=== PATIENT | male | born 1970 | race Caucasian/White ===

== ENCOUNTER 2024-02-03 12:58 | Day surgery (SDC) | payer OTHER, SELFPAY ==
[2024-02-03] VITALS (9 sets, daily range): BP systolic 142–187; BP diastolic 74–108; PULSE 73–96; RESP 16–18; TEMP 36.4–36.6; O2SAT 92–100
--- NOTE | 2024-02-03 15:33 | ED.GENADULT ---
HPI - General Adult General Chief complaint: Abdominal Pain Stated complaint: sent for appendicitis Time Seen by Provider: 02/03/24 15:17 History of Present Illness HPI narrative: 53-year-old male presenting to the emergency department for evaluation after having an outpatient CT scan that showed acute appendicitis. Patient initially began having some diffuse/umbilical abdominal pain on Tuesday but thought it was nonspecific. Patient states over the course of the week his symptoms worsened. Patient did have follow-up with his primary care physician today and had an outpatient CT scan done through [facility] that did show acute appendicitis. They do not have a local surgeon on-call so he was advised to go to a hospital that did have a surgeon and patient preferred to come to [place]. At time of evaluation patient declined any medications for nausea or for pain control. Patient does have history B-cell lymphoma for which she completed treatment but never had follow-up for. Patient was also supposed to be taking Eliquis but states he has not had a dose of Eliquis for approximately 2 weeks. Patient denies any prior history of MD and denies any abdominal surgical history Related Data Allergies Allergy/AdvReac Type Severity Reaction Status Date / Time No Known Allergies Allergy Verified 02/03/24 16:58 Review of Systems Review of Systems: All systems reviewed & are unremarkable except as noted in HPI and below Exam Narrative: APPEARANCE: Well appearing, no pain, no distress, well-nourished. HEAD: normocephalic, atraumatic. EYES: PERRLA/EOMI, conjunctivae clear. NOSE: Normal no drainage EARS:TMS clear with good light reflex. THROAT: Pharynx clear, no exudate. NECK: Supple. No adenopathy, no masses. RESPIRATORY: Airway patent, respirations nonlabored. Clear to auscultation bilaterally, no rales, rhonchi, wheezing. CARDIOVASCULAR: Regular rate and rhythm without murmurs rubs or gallops. ABDOMINAL: Right lower quadrant tenderness to palpation, normal bowel sounds MUSCULOSKELETAL: Moves all extremities. Strength/ROM intact, No edema, No calf tenderness. NEURO: Alert. Cranial nerves II through XII intact. SKIN: Warm, dry. Normal Color Course Vital Signs Vital signs: Vital Signs Temperature 97.6 F 02/03/24 13:20 Pulse Rate 96 02/03/24 13:20 Respiratory Rate 18 02/03/24 13:20 Blood Pressure 150/88 H 02/03/24 13:20 Pulse Oximetry 96 02/03/24 13:20 Oxygen Delivery Room Air 02/03/24 13:20 Temperature 98 F 02/03/24 18:46 Pulse Rate 80 02/03/24 20:14 Respiratory Rate 16 02/03/24 19:38 Blood Pressure 158/84 H 02/03/24 20:14 Pulse Oximetry 95 02/03/24 19:38 Oxygen Delivery Room Air 02/03/24 19:38 Oxygen Flow Rate 3 02/03/24 19:23 Medical Decision Making MDM Narrative Medical decision making narrative: 53-year-old male present to the emergency department for evaluation for an outpatient CT scan that showed acute appendicitis. Patient declined any medications for pain control. Patient was treated with IV fluids and a dose of Zosyn. I did discuss the case with Dr. Martinez and he states he does not necessarily need the CT scan repeated and would be comfortable with obtaining the CT read from [facility]. Basic labs including CBC CMP were ordered and patient was ordered Zosyn. Patient went to the OR with Dr. Martinez Differential Diagnosis Differential Diagnosis: Acute appendicitis Medical Records Medical records narrative: Outside medical records were sought from [facility] and did show acute appendicitis Vital Signs Vital Signs: Vital Signs Temperature 97.6 F 02/03/24 13:20 Pulse Rate 96 02/03/24 13:20 Respiratory Rate 18 02/03/24 13:20 Blood Pressure 150/88 H 02/03/24 13:20 Pulse Oximetry 96 02/03/24 13:20 Oxygen Delivery Room Air 02/03/24 13:20 Temperature 98 F 02/03/24 18:46 Pulse Rate 80 02/03/24 20:14 Respiratory Rate 16 02/03/24 19:38 Blood Pressure 158/84 H 02/03/24 20:14 Pulse Oximetry 95 02/03/24 19:38 Oxygen Delivery Room Air 02/03/24 19:38 Oxygen Flow Rate 3 02/03/24 19:23 Imaging Data Radiologist's impression: Read from outside hospital CT abdomen pelvis with contrast Impression: Appendix measures 8.4 mm. Indices stranding changes are present. Findings are consistent with appendicitis. No loculated collections are present. No evidence of pneumoperitoneum. Diffuse colonic diverticulosis Discharge Plan Discharge Clinical Impression: Acute appendicitis Qualifiers: Acute appendicitis type: with localized peritonitis Appendicitis gangrene presence: without gangrene Appendicitis perforation presence: without perforation Appendicitis abscess presence: without abscess Qualified Code(s): K35.30 - Acute appendicitis with localized peritonitis, without perforation or gangrene Patient Disposition: Home, Self-Care Condition: Improved
--- NOTE | 2024-02-03 16:14 | P.SS_ITS ---
Same Day Admit/Disch: [facility] History of Present Illness Chief complaint: Acute appendicitis Narrative: Ye Andrews is a 53 year old male who has been having some mild, indistinct, mid abdominal pain for about 6 days. Last night and this morning this pain moved to the right lower quadrant and became more severe. He has felt feverish but did not take his temperature. He has had no nausea, vomiting, or diarrhea. He saw his primary care physician this morning who noticed him to be tender in the right lower quadrant. He sent him for a CT scan at [place] [facility] and this CT scan reportedly showed acute appendicitis. They have no surgeon in [facility] at this time and patient lives in [place], so he preferred to come here to [place] for treatment. He denies abdominal pain except that it hurts in the right lower quadrant whenever he moves. He has had no previous abdominal surgery. Patient significantly does have a history of B-cell lymphoma. This has been treated by Dr. Gomez at the [facility]. Patient's last treatment was in July. He reports that he was to be seen for a follow-up visit but did not show up. He had a Port-A-Cath but it was only in for a couple of weeks as he developed venous thrombosis associated with it. He is supposed to be taking Eliquis for the upper extremity DVT but has not taken any for a couple of weeks. He has not been working with his cancer treatment and is in the process of applying for disability. Aside from his abdominal complaints, he has noticed that his right knee hurts when he starts to walk but gets better as he walks more. This has been going on about a week. He has had no lower extremity swelling. His CT scan report is in the process of being acquired from [facility]. We also have no lab work and this is being drawn in the emergency room. Same Day Admit/Disch: Med Pre-admit Medications Home Medications ?Medication ?Instructions ?Recorded ?Confirmed ?Type ibuprofen 600 mg tablet 600 mg PO Q6H PRN pain #14 tabs 02/03/24 Rx oxycodone-acetaminophen 5 mg-325 1 - 2 tablet PO Q6H PRN pain #10 02/03/24 Rx mg tablet (Percocet) tabs Review of Systems Review of Systems All systems reviewed & are unremarkable except as noted in HPI and below (As noted in the HPI) Exam Const: General: comfortable, no acute distress, alert and awake HENMT: Head: normocephalic and atraumatic Mouth: Yes Normal oral and palatal mucosa present Eyes: Conjunctivae: conjunctivae normal Pupils: Equal, round and reactive pupils present EOM: EOMs intact bilaterally Neck: Neck: normal visual inspection, no lymphadenopathy and nontender Resp: Effort & Inspection: normal respiratory effort Auscultation: clear to auscultation bilaterally Cardio: Rate: regular rate Rhythm: regular rhythm Heart sounds: no gallops, no murmurs and no rubs GI: Inspection: no abdominal wall ecchymosis, non-distended, obesity, no scars, visible herniation (Umbilical) and other (Diastasis linea alba) GI Palp: Yes Soft to palpation, Yes Tenderness to palpation present (GI) (Exquisitely tender right lower quadrant with guarding), Yes Guarding due to palpation present (GI), No Hepatosplenomegaly present, No Hepatomegaly present, No Splenomegaly present, Yes Hernia present umbilical < 3 cm (Reducible), No Palpable mass present and No Ascites present Skin: General skin exam: normal color Lesions: no lesions Rashes: no rashes Neuro: General: no focal motor deficits and CN's II-XI intact bilaterally Cranial nerves: Yes Equal, round and reactive pupils present, Yes Bilaterally intact EOM present, Yes facial symmetry and Yes Midline tongue present Speech: normal speech Motor exam (neuro): 5/5 motor strength present throughout and Motor abnormalities not present Extrem: General: no clubbing, cyanosis or edema and edema Psych: Affect: normal affect Thought process: Normal thought process present Insight: Good insight present (Psych) DS: Data Additional Comments Additional comments: CT scan report came to the emergency room from [facility]. Dr. Hidalgo read the report to me and it suggests an 8 mm appendix with periappendiceal stranding but no evidence of abscess or ruptured appendix. DS: Summary Time Spent with Patient Time attestation: Total time spent providing and/or coordinating discharge services: DS: Admitting Diagnosis Discharge Date 02/03/24 Admitting Diagnosis * Acute appendicitis-await CT scan report and the labs being drawn in the emergency room but clinically his history and exam findings are certainly consistent with the reported CT scan results. We will wait for the labs and CT scan report but I did go ahead and explained that there are medical and surgical treatments for appendicitis. Medical treatments have shortcomings in that the appendix is not removed. Occasionally appendiceal cancer is the cause of the patient's symptoms. There is also a significant risk of recurrent appendicitis as well. I have recommended laparoscopic appendectomy. I described the procedure to the patient and his . The length of the surgery and the usual recovery have been discussed. All questions were answered, he agrees to go ahead. * History B-cell lymphoma-patient finished treatment for this last summer but has not followed up. * History DVT associated with Port-A-Cath placement-patient prescribed Eliquis but has not taken this for couple of weeks DS: Discharge Diagnosis Discharge Diagnosis (1) Acute appendicitis: Qualifiers: Acute appendicitis type: with localized peritonitis Appendicitis gangrene presence: without gangrene Appendicitis perforation presence: without perforation Appendicitis abscess presence: without abscess Qualified Code(s): K35.30 - Acute appendicitis with localized peritonitis, without perforation or gangrene Code(s): K35.80 - Unspecified acute appendicitis Status: Acute Assessment and Plan: UNEVENTFUL LAPAROSCOPIC APPENDECTOMY PERFORMED 02/03/[address] MARTINEZ (2) History of B-cell lymphoma: Code(s): Z85.72 - Personal history of non-Hodgkin lymphomas Status: Chronic Assessment and Plan: Finished chemotherapy last July. Needs to follow-up with Dr. Gomez (3) DVT of axillary vein, chronic: Qualifiers: Laterality: unspecified laterality Qualified Code(s): I82.A29 - Chronic embolism and thrombosis of unspecified axillary vein Code(s): I82.A29 - Chronic embolism and thrombosis of unspecified axillary vein Status: Chronic Assessment and Plan: Associated with Port-A-Cath which has been removed. Patient was prescribed Eliquis but has not been taking it for a couple of weeks. Discharge Plan Discharge Patient Disposition: Home, Self-Care Discharge Instructions: 1. May shower the day after surgery over incisions. 2. Call office for: -Wound increasingly painful or bleeding -Vomiting -Fever of greater than 101 degrees 3. Expect some blood on dressing and old blood on skin. 4. If no bowel movement for three days, take 1 oz. (30 ml) Milk of Magnesia, if no results, take Fleets enema. 5. No heavy lifting > 15-20 pounds for 2 weeks. 6. No driving for 3 days or while taking narcotic pain medications. 7. Up walking 10-30 minutes three times per day. Stairs are okay, just take them slowly. 8. Resume previous home medications. 9. Follow-up 10-14 days in office for wound check or as previously scheduled. 10. Oral pain medications prescription to be sent home with patient. 11. NUTRITION: Start out by drinking fluids and increase your diet as tolerated. If you experience nausea, try dry toast, crackers, and 7-UP. If nausea or vomiting persists, contact your surgeon?s office. Patient Instructions: Antibiotic Form Patient Language: Lao Stand Alone Forms: General Discharge Information Follow-up/Referrals: Antonio Martinez MD [Physician] - 2 Weeks (Call for appointment) PHYSICIAN NOT ON STAFF,NONSTAFF [Primary Care Provider] - Discharge Medications: New oxycodone-acetaminophen [Percocet] 5-325 mg tablet 1 - 2 tablet PO Q6H PRN (Reason: pain) Qty: 10 0RF ibuprofen 600 mg tablet 600 mg PO Q6H PRN (Reason: pain) Qty: 14 0RF
--- NOTE | 2024-02-03 17:20 | P.PNAN_ITS ---
Anes - Initial Pre Proc Eval Procedure: Operation Date: 02/03/24 17:15 Proposed Procedures p Laparoscopic Appendectomy - Antonio Martinez MD Date/Time: 02/03/24 17:20 Surgeon: Antonio Martinez MD Pre Op Diagnosis: Acute appendicitis Patient Data Age: 53 Gender: M Height: 1.83 m Weight: 118.8 kg Last Vital Signs Temp 36.6 C 02/03/24 16:55 Pulse 79 02/03/24 17:06 Resp 16 02/03/24 17:06 BP 187/101 H 02/03/24 17:06 Pulse Ox 95 02/03/24 17:06 O2 Del Method Room Air 02/03/24 16:55 Allergies Allergy/AdvReac Type Severity Reaction Status Date / Time No Known Allergies Allergy Verified 02/03/24 16:58 Patient hx anesthesia problems: none Family hx anesthesia problems: none Results Review: All pre-operative results and documents have been reviewed as part of the pre- operative evaluation. Anes - Eval Final PreProcedure Day of Procedure 02/03/24 17:20 Patient weight: obese Heart: regular rate and rhythm Lungs: clear to auscultation Airway: Mallampati scale class II Neurological: alert and oriented Last oral intake: >/= 8 hours ASA classification: III Emergent: yes Anesthetic plan: proceed Anesthesia type and monitoring: general ETT and standard monitoring Results Review: All pre-operative results and documents have been reviewed as part of the pre- operative evaluation. Informed Consent: The patient's anesthetic plan and its attendant risks and benefits were discussed with the patient/family/POA. Questions were solicited and answers provided to the satisfaction of the patient/family/POA.
--- NOTE | 2024-02-03 17:23 | WPDHPUPDATE1 ---
History and Physical Update Update Date/Time: 02/03/24 17:23 History and Physical has been reviewed, including an updated exam of the patient. There are NO changes in the patient's condition. Risks, benefits, and alternatives have been discussed and questions answered. Patient agrees to proceed with procedure.
[2024-02-03] MEDS: BUPIVACAINE/EPINEPHRINE 0.5% 50 ML VIAL 30 ML INFILTRATE (17:24)
[2024-02-03] MEDS: PIPERACILLN/TAZ 3.375GM/NS50ML 3.375 GM/50 ML BAG IVPB (17:54)
[2024-02-03] MEDS: LACTATED RINGERS 1,000 ML 30 ML IV CONT ×2 (18:30→18:46)
--- NOTE | 2024-02-03 18:42 | P.OP_ITS ---
Procedure Note - Detailed Date of Procedure 02/03/24 Pre-op Diagnosis Acute appendicitis Post-op Diagnosis Same Procedure Performed Laparoscopic appendectomy Surgeon Antonio Martinez MD Parenting Skills Instructor Dave MACIAS Anesthesia General and Local Indications Patient had about 5 days of generalized nondescript abdominal pain that last night moved to the right lower quadrant. His primary care physician saw him and noticed tenderness in the right lower quadrant. CT scan in [place] showed a cute appendicitis. Patient was examined in the emergency room and [facility] and felt to have acute appendicitis. He is taken to surgery now for laparoscopic appendectomy. Findings Patient had acute appendicitis. The midportion of the appendix was retroperitoneal and was bound by overlying adhesions. There was no evidence of gangrene or perforation. Description of Procedure Patient was taken to the operating room and induced into general anesthesia. The abdomen was prepped and draped. Initial 3 trocars were placed in the usual fashion starting in left upper quadrant and then proceeding down the left side under direct visualization. A left lower abdominal 10 11 trocar was placed. Patient was placed in Trendelenburg with the right-side elevated. Patient has a protuberant abdomen and the appendix was bound down by the adhesions mentioned above. We placed a 4th trocar in the right upper quadrant and placed the camera there for better visualization. With two retractor ports and a dissecting port, we were slowly able to dissect the distal appendix which had a lot of fatty mesentery associated with it. The cecum was elevated and the adhesions binding down the proximal and midportion of the appendix were exposed. These were carefully taken down and the appendix was able to be mobilized. There were extensive adhesions binding the appendix in a retroperitoneal position in its midportion. These were difficult to see but were slowly exposed and divided until the appendix was mobilized fully. We then dissected in the mesoappendix and thoroughly cauterized and divided the appendiceal artery. We dissected more the mesoappendix and then skeletonized the appendix at its base. A Vicryl endoloop was then used to ligate the appendix at its base. We then amputated the appendix just above the ligature and cauterized the mucosa of the appendiceal stump. Once the appendix was freed, it was immediately placed in an Endo-Catch bag and retrieved through the 10 11 left lower quadrant trocar site. We replaced the trocar and then exposed the areas of dissection on the right si de of the abdomen. We irrigated and suctioned this area 2 or 3 different times. There was no evidence of bleeding or bowel injury. All looked good. We then evacuated CO2 and removed the trocar sleeves. Skin wounds were closed with subcuticular 4-0 Monocryl skin suture. The wounds were dressed with Exofin surgical adhesive. The patient was awakened and taken to recovery in good condition. Sponge and needle counts were correct x2. Estimated Blood Loss -15 Drains No Packing No Pathology Yes (Appendix) Complications None Condition Stable Disposition PACU [facility] Billing Surgery - Charge Forward: Surgery Billing (Laparoscopic appendectomy)
[2024-02-03] MEDS: fentaNYL CITRATE INJ (*CRX) 100 MCG/2 ML VIAL 25 MCG IV PUSH (19:18)
[2024-02-03] MEDS: KETOROLAC 30 MG/ML VIAL (*BKC) IV PUSH (19:18)
[2024-02-03] MEDS: oxyCODONE HCL (*CRX) 5 MG TAB IR PO (20:08)
== END 2024-02-03 20:35 | disposition home or self-care (01) ==
LOC: ANHED 16:53 → ANHSURGERY 16:58
PROVIDERS: Emergency Provider Emergency Medicine; Visit Provider Surgery
PROC: 0DTJ4ZZ Resection of Appendix, Percutaneous Endoscopic Approach (ICD-10-PCS; CPT 44970; principal; 2024-02-03 17:15)
DX: K35.30 Acute appendicitis with localized peritonitis, without perforation or gangrene (principal); G89.18 Other acute postprocedural pain; E66.9 Obesity, unspecified; Z68.35 Body mass index [BMI] 35.0-35.9, adult; Z79.1 Long term (current) use of non-steroidal anti-inflammatories (NSAID); Z79.891 Long term (current) use of opiate analgesic; Z85.72 Personal history of non-Hodgkin lymphomas; Z86.718 Personal history of other venous thrombosis and embolism
CPT/HCPCS: 44970; 88304; 96365; 96375; 99285; A9270; J0330; J1100; J1171; J1885; J2003; J2250; J2405; J2543; J2704; J3010; J7030; J7120

== ENCOUNTER 2024-02-22 11:39 | Outpatient (CLI) | payer OTHER, SELFPAY ==
--- NOTE | ~2024-02-22 | XR_ITS ---
XR knee RT 3V Ordering provider: Don Araya, History: . NKI, Pain/Burning X 1 month, HX of NONH LYMPHOMA TYP B . Comparison: None. FINDINGS: BONES: No acute fracture or dislocation. Exostosis seen in the distal femur and proximal tibia. JOINT SPACES: Normal. SOFT TISSUES: Normal. IMPRESSION: No acute osseous abnormality right knee. Exostosis in the distal femur and proximal tibia. Reviewed, dictated and finalized at location A. MACOEPIDEMIOLOGIST
== END 2024-02-22 11:40 | disposition home or self-care (01) ==
LOC: CHSIMG 11:42
PROVIDERS: PCP Family Medicine; Visit Provider Family Medicine
DX: M25.561 Pain in right knee (principal); M89.9 Disorder of bone, unspecified
CPT/HCPCS: 73562

== ENCOUNTER 2024-07-12 10:22 | Outpatient (CLI) | payer OTHER, SELFPAY ==
--- NOTE | ~2024-07-12 | PE_ITS ---
EXAMINATION: PET skull to mid thigh DATE: 07/12/2024 12:37 INDICATION: Diffuse large B-cell lymphoma TECHNIQUE: Blood glucose level was 139 mg/dL. 10.81 mCi of 18-fluorodeoxyglucose (18-FDG) was adminis tered i.v. Low dose computed tomography (CT) images were acquired from the base of the brain to the p roximal thighs for attenuation correction and anatomic localization. Positron emission tomography (PE T) images were acquired in the same distribution beginning 54 minutes after injection. Images includi ng fused PET/CT images were reconstructed in axial, coronal, and sagittal planes. Automated exposure control technique was employed. The dose-length product was 1301.36mGy-cm. COMPARISON: None FINDINGS: Head/neck: There is symmetric increased activity in the oral cavity, nares and ocular muscles without CT correla te, likely physiologic. No pathologically enlarged cervical lymphadenopathy or suspicious foci of inc reased FDG uptake in the visualized head or neck. Chest: There are multiple small bilateral calcified pulmonary nodules and lateral calcified hilar lymph node s consistent with old granulomatous disease. No suspicious noncalcified or FDG avid pulmonary nodules or pleural effusion. Mild cardiomegaly with atherosclerotic coronary artery calcification. No perica rdial effusion. Thoracic aorta is normal in caliber. No pathologically enlarged thoracic lymphadenopa thy. Abdomen/pelvis/proximal thighs: Physiologic renal accumulation and excretion of FDG activity in the kidneys, bladder and along portio ns of ureters. Photopenic defect associated with a 2.7 cm low-attenuation cyst in the left kidney. No rmal degree and heterogenous pattern of increased uptake throughout the liver without radiologic radha elate or dominant FDG avid lesion. The gallbladder, pancreas, spleen and bilateral adrenal glands are normal. Mild uptake scattered throughout the bowels without radiologic correlate, also likely physio logic. No other abnormal foci of increased FDG uptake or pathologically enlarged lymphadenopathy in t he abdomen, pelvis or proximal thighs. Musculoskeletal: Relatively symmetric and likely physiologic increased activity in the musculature of the bilateral lundberg nds and forearms. Additional small region of increased muscular activity without radiologic correlate in the left gluteus medius medius muscle belly which could be physiologic although the focality also suggests potentially inflammatory etiology such as muscle strain or site of intramuscular injection. Again seen are pagetoid changes throughout the left innominate bone and in the periacetabular right innominate bone. No suspicious lytic, blastic or FDG avid bone lesions. IMPRESSION: 1. No FDG avid lesions or pathologically enlarged lymphadenopathy to suggest recurrent lymphoma. Reviewed, dictated and finalized at location A. IMPRESSION: 1. No FDG avid lesions or pathologically enlarged lymphadenopathy to suggest re current lymphoma.
[2024-07-12 11:07] LABS: Glucose Point of Care 139 mg/dl (65-105)
--- OUTSIDE RECORDS SUMMARY | 2024-07-12 11:29 | XMS_ITS | Encounter Summary ---
Author Organization [facility] Address [address] [place] [address] Care Team Providers Care Shoder Filler Name Role Phone Unavailable Primary Care Provider Unavailabl e Encounter Details Date Type Department Care Team (Late st Contact Info) Description 07/15/2022 Lab Requisition [facility] - Pathology Lab [address] [place] [id number] lAton Sandoval MD [address] [id number] Illness, unspecified Social History Tobacco Use Types Packs/Day Years Used Date Smoking Tobacco: Never Assessed Sex and Gender Information Value Date Recorded Sex Assigned at Not on file Legal Sex Male 2:48 PM CDT Gender Identity Not on file Sexual Orientation Not on file documented as of this encounter Plan of Treatment Not on file documented as of this encounter Procedures Procedure Name Priority Date/Time Associated Diagnosis Comments PATHOLOGY TISSUE Routine 07/14/2022 10:4 0 AM CDT Illness, unspecified documented in this encounter Results * PATHOLOGY TISSUE (07/14/2022 10:40 AM CDT) Case Report Surgical Pathology Report Case: [id number] Authorizing Provider: Alton Sandoval MD Collected: 07/14/2022 10:40 AM Ordering Location: [facility] Care Pathology Lab Received: 07/15/2022 03:00 PM Pathologist: Lesly Wilson MD Specimen: Lymph Node Biopsy, right neck lymph node biopsy 07/16/2022 11:18 AM CDT [facility] Final Diagnosis Lymph node, right neck, needle core biopsy: - B-cell lymphoma - See description 07/16/2022 11:18 AM [facility] PATHOLOGY LAB at 1118 CDT Microscopic Description and Comment Sections show thin cores of soft tissue that are infiltrated by a population of lymphocytes. No normal alexei structures are noted, and the sampled tissue appears to have a diffuse infiltrate of cells. The cells vary in morphology and are predominantly intermediate in size. Nuclear contour irregularities are frequently noted. Occasional mitotic activity and apoptosis is seen. No areas of necrosis are sampled. Immunohistochemistry is performed with appropriately reactive controls on block A2 to further define the infiltrating cells and view the immunoarchitecture. The cells are positive for CD20, BCL-6, MUM-1, and BCL-2. CD21 does not show any definitive follicular dendritic cell meshworks, but it appears to weakly stain the majority of the tumor cells. The tumor cells lack expression of CD5, CD10, cyclin D1, and CD30. While c-MYC is attempted, limited tissue present on the slide precludes definitive interpretation. CD3 and CD5 show scattered admixed T-cells. In summary, the sampled tissue shows a B-cell lymphoma of non-germinal center origin. The primary differential diagnostic considerations at this time include a high-grade B-cell lymphoma (e.g., double or triple hit lymphoma) or a diffuse large B-cell lymphoma of non-germinal center origin. FISH for MYC, BCL-2, and BCL-6 is recommended at a minimum to resolve this. Limited tissue remains in block A2, and block A1 contains an overall smaller quantity of tissue. This may require additional sampling to perform these studies for further classification. If more tissue is obtained, consider excisional biopsy for a more complete assessment of the cytomorphology and architecture. Clinical correlation is advised. 07/16/2022 11:18 AM [facility] PATHOLOGY LAB Clinical History 52 year old man with an enlarged right submandibular lymph node that is reported to be necrotic on imaging. 07/16/2022 11:18 AM [facility] PATHOLOGY LAB Materials Received Received are 6 slides and 2 blocks (A1; A2) labeled [id number] along with a copy of the outside pathology report. [place] [address]. All original materials are returned to the referring institution, along with a copy of our final report. 07/16/2022 11:18 AM T [facility] PATHOLOGY LAB Pathologist Location at [facility] 07/16/2022 11:18 AM CDT [facility] PATHOLOG[facility] LAB Disclaimer The performance characteristics of all immunohistochemical and indirect immunofluorescence stains (if any) cited in this report were determined by the Histopathology Laboratory of [facility]. Some of these tests were developed by our own laboratory and have not been cleared or approved by the US Food and Drug Administration. The FDA does not require this test to go through premarket FDA review. These tests are used for clinical purposes. They should not be regarded as investigational or for research. This laboratory is certified under the Clinical Laboratory Improvement Amendments (CLIA) as qualified to perform high complexity clinical laboratory testing. This case has been personally reviewed and interpreted by the attending (teaching) pathologist. 07/16/2022 11:18 AM CDT [facility] PATH[facility] Embedded Images 07/16/2022 11:18 AM T [facility] PATH[facility] LAB Pathology/Cytolo gy BIOPSY OF LYMPH NODE / Unknown 07/14/2022 10:40 AM CDT 07/15/2022 3:00 PM CDT us Alton Sandoval MD LAB - PATHOLOGY/CYTOLOGY ORDERAB LES Final Result [facility] PATHOLOGY LAB [address] [place], [place] [id number] [place] [address] documented in this encounter Visit Diagnoses Diagnosis Illness, unspecified documented in this encounter
--- OUTSIDE RECORDS SUMMARY | 2024-07-12 11:29 | XMS_ITS | Clinical Summary ---
Author Organization [facility] Address [address] [place] [address] Care Team Providers Care Tactical Debriefer Name Role Phone Unavailable Primary Care Provider Unavailabl e Source Comments [facility],non-owned Affiliates and Associated Physician Practices is amultiple site organization consisting of ambulatory clinics and hospital sitesin [place], [place], [place] and [place]. This disclosure is being madepursuant to the Care Everywhere program and may not contain all information available regarding this patient. Last updated 17.[facility] [employer] Social History Tobacco Use Types Packs/Day Years Used Date Smoking Tobacco: Never Assessed Sex and Gender Information Value Date Recorded Sex Assigned at Not on file Legal Sex Male 2:48 PM CDT Gender Identity Not on file Sexual Orientation Not on file Plan of Treatment Health Maintenance Due Date Last Done Comments COLOGUARD (AGES 45-75) - COL ON CA SCREENING 1970 COLON MONITORING 1969 COLONOSCOPY - COLON CA SCREENING 1969 CT COLONOGRAPHY - COLON CA SCREENING 1969 Colorectal Cancer Screening 1970 FIT - COLON CA SCREENING 1969 FLEX SIG - COLON CA SCREENING 1969 LIPID TESTING 1969 HIV SCREENING 1984 HEPATITIS C SCREENING 03/08/1987 DTAP/TDAP/TD VACCINES (1 - Tdap) 1988 HEPATITIS B VACCINE (1 of 3 - 19+ 3-dose series) 1988 PNEUMOCOCCAL VACCINE 50+ (1 of 1 - PCV) 2019 ZOSTER VACCINE (1 of 2) 2019 COVID-19 VACCINE (1 - 2023-2 5 season) 2023 DEPRESSION SCREENING 02/08/2024 INFLUENZA VACCINE (Season Ended) 2024 HIB VACCINE Aged Out No longer eligi ble based on patient's age to complete this topic HPV VACCINE Aged Out No longer eligi ble based on patient's age to complete this topic MENINGOCOCCAL (Group B) VACC INE SHARED DECISION-MAKING Aged Out No longer eligibl e based on patient's age to complete this topic MENINGOCOCCAL GROUPS A/C/Y/W VACCINE Aged Out No longer eligible b ased on patient's age to complete this topic Insurance [employer] SELF PAY NO INSURANCE Member Subscriber Plan / Payer (Ef fective for All Dates) Name:Chris Dillard Member ID:Not on file Relation to Subscriber:Not on file Name:CHRIS DILLARD Subscriber ID:Not on file (Home) Address: [address] [place] [id number] Payer ID:Not on file Group ID:Not on file Type:Self Pay Address: [facility] Address: [facility] [id number] [place] [phone]
--- OUTSIDE RECORDS SUMMARY | 2024-07-12 11:29 | XMS_ITS | Clinical Summary ---
Author Organization [facility] Marianela Tobar Address [address] [place] [address] Care Team Providers Care T[employer] Center Supervisor Name Role Phone Don Araya MD Primary Care Provider Allergies No known active allergies Medications glipiZIDE (GLUCOTROL XL) 10 mg Extended Release 24 hour tablet Take 10 mg by mouth daily in the morning. 06/25/19 23 Active lovastatin (MEVACOR) 40 mg tablet Take 80 mg by mouth daily. 06/29/19 23 Active Tradjenta 5 mg Tablet Take 5 mg by mouth daily. 07/12/19 23 Active Lantus Solostar U-100 Insulin 100 unit/mL (3 mL) solution for injection 55 mL. 07/22/19 23 Active ondansetron (ZOFRAN ODT) 8 mg Tablet, Rapid DissolveIndicat ions:B-cell lymphoma of lymph nodes of neck, unspecified B-cell lymphoma type (CMS/HCC) Dissolve 1 tablet on top of tongue then swallow with saliva every 8 hours as needed for nausea or vomiting 30 Tablet 3 08/04/19 23 Active lisinopriL (PRINIVIL) 40 mg tablet Take 40 mg by mouth daily. 11/11/19 23 Active apixaban (ELIQUIS) 5 mg tabletIndicatio ns:Swelling of right upper extremity Take 1 Tablet (5 mg) by mouth 2 times daily. 60 Tablet 3 12/29/19 23 Active predniSONE (DELTASONE) 50 mg tabletIndicatio ns:B-cell lymphoma of lymph nodes of neck, unspecified B-cell lymphoma type (CMS/HCC) Take 2 Tablets (100 mg) by mouth see administration instructions. 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 (CMS/HCC); Swelling of right upper extremity from Last 3 Months Family History Medical History Relation Name Comments Diabetes Father Heart Disease Father Diabetes Mother Heart Disease Mother Relation Name Status Comments Brother Daughter 1 Alive Daughter 2 Alive Daughter 3 Alive Father Mother Alive Son 1 Alive Son 2 Alive Son 3 Alive Son 4 Alive Social History Tobacco Use Types Packs/Day Years Used Date Smoking Tobacco: Never Smokeless Tobacco: Never Alcohol Use Standard Drinks/Week Comments Yes 0 (1 standard drink = 0.6 oz pur e alcohol) occasional Sex and Gender Information Value Date Recorded Sex Assigned at Not on file Legal Sex Male 11:43 PM CDT Gender Identity Not on file Sexual Orientation Not on file Last Filed Vital Signs Vital Sign Reading Time Taken Comments Blood Pressure 156/87 03/01/2023 9:04 AM SENIOR FINANCIAL REPORTING ANALYST Pulse 80 03/01/2023 8:59 AM SENIOR FINANCIAL REPORTING ANALYST Temperature 35.9 C (96.7 F) 03/01/2023 8:59 AM SENIOR FINANCIAL REPORTING ANALYST Respiratory Rate 12 03/01/2023 8:59 AM SENIOR FINANCIAL REPORTING ANALYST Oxygen Saturation 94% 03/01/2023 8:59 AM SENIOR FINANCIAL REPORTING ANALYST Inhaled Oxygen Concentration - - Weight 120.7 kg (266 lb) 03/01/2023 8:59 AM SENIOR FINANCIAL REPORTING ANALYST Height 182.9 cm (6') 07/22/2022 3:30 PM CDT Body Mass Index 36.08 07/22/2022 3:30 PM CDT Plan of Treatment Health Maintenance Due Date Last Done Comments DTAP/TDAP/TD VACCINES (1 - Tdap) 1988 HEPATITIS B VACCINES (1 of 3 - 19+ 3-dose series) 04/1988 COLORECTAL SCREENING 2014 Colorectal Cancer Screening 2014 FIT-DNA Q 3 years 2014 FIT/FOBT Q 1 year 2014 Flex Sig/CT Colonography Q 5 years 2014 ZOSTER VACCINE (1 of 2) 2019 INFLUENZA VACCINE (#1) 2023 Insurance Care Teams Tire Center Supervisor Relationship Specialty Start Date End Date Don Araya MD [address] [place] [id number] PCP - General Family Practice 09/09/22
--- OUTSIDE RECORDS SUMMARY | 2024-07-12 11:29 | XMS_ITS | Encounter Summary ---
Author Organization [facility] Address [address] [place] [address] Care Team Providers Care Coater Operator Name Role Phone Unavailable Primary Care Provider Unavailabl e Encounter Details Date Type Department Care Team (Late st Contact Info) Description 07/15/[address] [facility] - Pathology Lab [address] [place] [address] Alton Sandoval MD [address] [place] [phone] Illness, unspecified Social History Tobacco Use Types Packs/Day Years Used Date Smoking Tobacco: Never Assessed Sex and Gender Information Value Date Recorded Sex Assigned at Not on file Legal Sex Male 2:48 PM CDT Gender Identity Not on file Sexual Orientation Not on file documented as of this encounter Plan of Treatment Not on file documented as of this encounter Visit Diagnoses Diagnosis Illness, unspecified documented in this encounter
== END 2024-07-12 10:23 | disposition home or self-care (01) ==
PROVIDERS: PCP Family Medicine; Visit Provider Internal Medicine Hematology & Oncology
DX: C83.31 Diffuse large B-cell lymphoma, lymph nodes of head, face, and neck (principal)
CPT/HCPCS: 78815; A9552

== ENCOUNTER 2025-01-07 06:49 | Outpatient (CLI) | payer OTHER, SELFPAY ==
--- NOTE | ~2025-01-07 | CT_ITS ---
EXAMINATION: CT chest abdomen pelvis w con DATE: 01/07/2025 07:19 INDICATION: B-cell lymphoma. TECHNIQUE: Computed tomography (CT) of the chest, abdomen, and pelvis was performed with 100 mL Omnipaque 350 intravenous contrast. Automated exposure control and iterative reconstruction technique were employed. The dose-length product was 1137.08 mGy-cm. COMPARISON: PET/CT 07/12/2024 FINDINGS: CHEST CT: Calcified pulmonary nodules and calcified hilar lymph nodes are consistent with old granulomatous disease. No pleural effusion. The heart size is normal. There are coronary artery calcifications. No pericardial effusion. ABDOMEN/PELVIS CT: The liver is normal. There is a 5.6 x 2.0 cm hypodense mass with capsular retraction in the spleen. There is an ill-defined 2.1 cm hypodense mass in the spleen. The spleen is normal in size. The gallbladder, pancreas, adrenal glands, and right kidney are normal. There is a 3.3 cm cyst in left kidney. The prostate is mildly enlarged. There is a right inguinal hernia containing fat. There are no dilated loops of bowel. The appendix is not visualized. There are no pathologically enlarged lymph nodes. There is no free intraperitoneal fluid. 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 There is mild lumbar spondylosis. There is a stable lytic lesion in L5 vertebral body without increased activity on the prior PET, likely benign. IMPRESSION: 1. Splenic masses, which may be infarcts or treated lymphoma. Reviewed, dictated and finalized at location E. [employer]
[2025-01-07 07:13] LABS: Estimated Glomerular Filt Rate > 60
== END 2025-01-07 06:50 | disposition home or self-care (01) ==
PROVIDERS: PCP Physician Assistant; Visit Provider Internal Medicine Hematology & Oncology
DX: C85.11 Unspecified B-cell lymphoma, lymph nodes of head, face, and neck (principal)
CPT/HCPCS: 71260; 74177; Q9967

== ENCOUNTER 2025-01-14 16:14 | Outpatient (CLI) | payer OTHER, SELFPAY ==
--- NOTE | ~2025-01-14 | US_ITS ---
EXAMINATION: US venous doppler UE RT, 01/14/2025 16:00 LAUNDERER HAND HISTORY: DVT Comparison: None Technique: Multiple valerio scale and color Doppler sonographic images were obtained of the internal jugular, subclavian, axillary, brachial, basilar, radial and ulnar veins. Findings: Venous System:Normal flow, augmentation and compressibility. No echogenic thrombus identified. Soft tissues: Soft tissues are unremarkable. Impression: Negative for DVT. Reviewed, dictated and finalized at location P. DERER HAND Impression: Negative for DVT.
--- OUTSIDE RECORDS SUMMARY | 2025-01-14 14:15 | XMS_ITS | Encounter Summary ---
Author Organization [facility] Address [address] [place] [address] Care Team Providers Care Nurse Transplant Name Role Phone Don Araya MD Primary Care Provider [phone] Reason for Referral * Radiology Services (Urgent) - Closed Specialty Diagnoses / Procedures Referred By Kami madison Referred To Contact Diagnoses Acute deep vein thrombosis (DVT) of axillary vein of right upper extremity (CMS/HCC) Procedures US DOPPLER VENOUS ARM RIGHT US DOPPLER VENOUS ARM RIGHT Arthur Gomez MD [address] [place] [phone] Phone: tel: fax: [place] [phone] Referral ID Status Reason Start Date Expiration Date V isits Requested Visits Authorized [id number] Closed [facility] CTS 01/14/2025 02/14/2026 1 1 SCHOOL HVAC R INSTRUCTOR * CT Scan (Routine) - Closed Specialty Diagnoses / Procedures Referred By Kami madison Referred To Contact Diagnoses B-cell lymphoma of lymph nodes of neck, unspecified B-cell lymphoma type (CMS/HCC) Procedures CT CHEST ABDOMEN PELVIS W CONT Arthur Gomez MD [address] [place] [phone] Phone: tel: fax: [place] [phone] Referral ID Status Reason Start Date Expiration Date V isits Requested Visits Authorized [id number] Closed [facility] CTS 01/14/2025 02/14/2026 1 1 SCHOOL HVAC R INSTRUCTOR Reason for Visit * Reason Comments Follow Up Encounter Details Date Type Department Care Team (Late st Contact Info) Description 01/14/2025 2:15 PM HIGH SCHOOL HVAC R INSTRUCTOR Office Visit [facility] Oncology and Hematology [facility] [address] [facility] [address] [place] [address] Arthur Gomez MD [address] [facility] [address] [place] [address] Arm DVT (deep venous thromboembolism), acute, left (CMS/HCC) (Primary Dx); B-cell lymphoma of lymph nodes of neck, unspecified B-cell lymphoma type (CMS/HCC); Acute deep vein thrombosis (DVT) of axillary vein of right upper extremity (CMS/HCC) Social History Tobacco Use Types Packs/Day Years Used Date Smoking Tobacco: Never Smokeless Tobacco: Never Tobacco Cessation:Counseling Given: Not Answered Alcohol Use Standard Drinks/Week Comments Yes 0 (1 standard drink = 0.6 oz pur e alcohol) occasional Sex and Gender Information Value Date Recorded Sex Assigned at Not on file Legal Sex Male 11:43 PM CDT Gender Identity Not on file Sexual Orientation Not on file documented as of this encounter Last Filed Vital Signs Vital Sign Reading Time Taken Comments Blood Pressure 165/78 01/14/2025 2:17 PM HIGH SCHOOL HVAC R INSTRUCTOR Pulse 84 01/14/2025 2:17 PM HIGH SCHOOL HVAC R INSTRUCTOR Temperature 36.8 C (98.3 F) 01/14/2025 2:13 PM HIGH SCHOOL HVAC R INSTRUCTOR Respiratory Rate 16 01/14/2025 2:13 PM HIGH SCHOOL HVAC R INSTRUCTOR Oxygen Saturation 96% 01/14/2025 2:17 PM HIGH SCHOOL HVAC R INSTRUCTOR Inhaled Oxygen Concentration - - Weight 109.3 kg (241 lb) 01/14/2025 2:13 PM HIGH SCHOOL HVAC R INSTRUCTOR Height - - Body Mass Index 32.69 07/22/2022 3:30 PM CDT documented in this encounter Progress Notes * Arthur Gomez MD - 01/14/2025 2:33 PM CST HEMATOLOGY / ONCOLOGY PROGRESS NOTE Patient Identification: Name: Ye Andrews Age: 54 y.o. Sex: male : 1970 DIAGNOSIS Diffuse large B cell lymphoma non-germinal center type status post ultrasound- guided biopsy of the right neck lymph node on July 14, 2022. FISH testing for double and triple hit lymphoma came back negative. CURRENT TREATMENT Surveillance TREATMENT HISTORY R-CHOP started August 19, 2022. Completed cycle 6/ on February 02, 2023. SUBJECTIVE Patient came to the office for follow-up visit. He denies any night sweats fevers and chills. He has intermittent left sided rib cage pain. Denies any other new complaints. Review of system Constitutional: Patient did not mention fevers, sweats, weight and appetite stable, denies any tiredness and fatigue HEENT: Patient did not mention sinus congestion, hearing or vision problems Respiratory: Patient did not mention cough, dyspnea, wheeze Cardiovascular: Patient did not mention chest pain, exertional chest pressure/discomfort, nausea, syncope, shortness of breath GI: Patient did not mention constipation, diarrhea, dsyphagia, reflux symptoms, vomiting, melena : Patient did not mention dysuria, frequency, incontinence, urgency Integumentary system: no lymphadenopathy, sweats, flushing Musculoskeletal: Patient not mention: myalgia, arthralgia, denies any further swelling. Neurological: Patient did not mention blurry or disturbed vision, numbness/weakness, dizziness Skin: No lumps, bumps or rashes. 12 point review of system was reviewed Objective: Vital signs in last 24 hours: As per nursing note Exam: General appearance: alert, cooperative, no distress, appears stated age Head: normocephalic, without obvious abnormality, atraumatic Eyes: conjunctivae/corneas clear, EOM's intact Ears: normal external ear canals AU Nose: Nares normal. Septum midline. Mucosa normal. No drainage or sinus tenderness Throat: Lips, mucosa, and tongue normal. Teeth and gums normal Neck: supple, symmetrical, trachea midline. Lungs: clear to auscultation bilaterally Heart: regular rate and rhythm, S1, S2 normal, no murmur, click, rub or gallop Abdomen: soft, non-tender. Bowel sounds normal. No masses, No organomegaly Extremities: extremities normal, atraumatic, right upper extremity edema Skin: Skin color, texture, turgor normal. No rashes or lesions Lymph nodes: No evidence of lymphadenopathy Neuro: No obvious focal deficit Exam as above PATH LABS Labs from August 18 showed WBC 9.0 hemoglobin 15.6 platelet 244,000 Labs from September 09 showed WBC 5.7 hemoglobin 15.5 platelet 334,000 creatinine 0.6 Labs from September 30 showed WBC 5.2 hemoglobin 16.2 platelet 301,000 creatinine 0.6 Labs from October 21 showed WBC 7.5 hemoglobin 15 platelet 287,000 creatinine 0.8 Labs from December 17 showed WBC 8.1 hemoglobin 15.7 platelet 297,000 Labs from January 25 showed WBC 2.7 hemoglobin 15.8 platelet 280,000 ANC 1200 creatinine 0.7 Labs from July 31 showed WBC 10.5 hemoglobin 15.2 platelet 350,000 Labs from January 14 showed WBC 7.1 hemoglobin 15.1 platelet 268,000 creatinine 0.9 Assessment: Plan: There are no active problems to display for this patient. 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 FISH testing for double and triple hit lymphoma came back negative. Flow cytometry of the peripheral blood for lymphoma came back negative. CT soft tissue neck done on July 02 that showed 8 x 3.6 x 5 cm mass in the submental region extending to the right submandibular region. PET scan done on August 31 showed enlarged FDG avid lymphadenopathy in the right face and neck with additional involvement of the normal-sized left internal jugular chain lymph node with borderline increased FDG activity. No evidence of distant metastasis. Patient is started chemotherapy with R-CHOP regimen on August 19, 2022. Patient received cycle 4 of chemotherapy on October 21 but further chemotherapy was discontinued due to insurance changes. Patient resumed chemotherapy with cycle 5 on January 12, 2023. Patient completed cycle 6 of chemotherapy on February 02, 2023. CT scan chest abdomen pelvis done on January 07, 2025 showed splenic masses may reflect splenic infarction or treated lymphoma with no evidence of lymphadenopathy. Labs stable. There is no evidence of relapse of disease on my examination. I will see him back in 9months with repeat CT chest abdomen and pelvis. History of right internal jugular and axillary vein DVT status post port removal. He is clinically asymptomatic. He is on Eliquis. We will order Doppler studies now and based on the results we will decide about continuation of Eliquis versus starting aspirin. History of TIA. Patient had brain MRI done on October 24, 2024 showed chronic small vessel ischemic changes. My plan will be to start him on aspirin. He will also follow-up with a neurologist. Phone visit in 1 week and follow-up with CT scan in 9 months. 01/14/2025 Arthur Gomez MD SCHOOL HVAC R INSTRUCTOR documented in this encounter Plan of Treatment Upcoming Encounters Date Type Department Care Team (Late st Contact Info) Description 10/21/2025 10:15 AM CDT Office Visit [facility] Oncology and Hematology - [place] [address] [facility] [address] [place] [address] Arthur Gomez MD [address] [facility] [address] [place] [address] Scheduled Orders Name Type Priority Associated Diagnoses Orde r Schedule CBC WITH DIFFERENTIAL Lab Stat B-cell lymphoma of lymph nodes of neck, unspecified B-cell lymphoma type (CMS/HCC) Expected: 10/15/2025, Expires: 01/13/2026 COMPREHENSIVE METABOLIC PANEL Lab Stat B-cell lymphoma of lymph nodes of neck, unspecified B-cell lymphoma type (CMS/HCC) Expected: 10/15/2025, Expires: 01/13/2026 LACTATE DEHYDROGENASE Lab Routine B-cell lymphoma of lymph nodes of neck, unspecified B-cell lymphoma type (CMS/HCC) Expected: 10/15/2025, Expires: 01/13/2026 CT CHEST ABDOMEN PELVIS W CONT Imaging Routine B-cell lymphoma of lymph nodes of neck, unspecified B-cell lymphoma type (CMS/HCC) Expected: 10/15/2025, Expires: 01/13/2026 US DOPPLER VENOUS ARM RIGHT Imaging Stat Acute deep vein thrombosis (DVT) of axillary vein of right upper extremity (CMS/HCC) Expected: 01/14/2025, Expires: 01/14/2026 documented as of this encounter Visit Diagnoses Diagnosis Arm DVT (deep venous thromboembolism), acute, left (CMS/HCC)- Primary B-cell lymphoma of lymph nodes of neck, unspecified B-cell lymphoma type (CMS/HCC) Acute deep vein thrombosis (DVT) of axillary vein of right upper extremity (CMS/HCC) documented in this encounter Care Teams Nurse Transplant Relationship Specialty Start Date End Date Don Araya MD [address] [place] [phone] PCP - General Family Practice 09/09/22 documented as of this encounter
--- OUTSIDE RECORDS SUMMARY | 2025-01-14 19:26 | XMS_ITS | Encounter Summary ---
Author Organization [facility] Address [facility] [place] [address] Care Team Providers Care Psychologist Clinical Name Role Phone Don Araya MD Primary Care Provider Reason for Referral * Imaging (Routine) - New Request Specialty Diagnoses / Procedures Referred By Contac t Referred To Contact RADIOLOGY Diagnoses Atypical chest pain Procedures NM PHARM NUC STRESS TEST 1 DAY W TRACING Joshua Cruz PA [address] [place] [phone] Phone: tel: fax: Referral ID Status Reason Start Date Expiration Date V isits Requested Visits Authorized [id number] New Request 01/14/2025 01/14/2026 1 1 MODELER * Procedure (Routine) - New Request Specialty Diagnoses / Procedures Referred By Kami madison Referred To Contact Diagnoses Atypical chest pain Procedures CARDIOLOGY STRESS TEST ONLY, EXERCISE Joshua Cruz PA [address] [place] [phone] Phone: tel: fax: Referral ID Status Reason Start Date Expiration Date V isits Requested Visits Authorized [id number] New Request 01/14/2025 01/14/2026 1 1 MODELER Encounter Details Date Type Department Care Team (Late st Contact Info) Description 01/14/2025 Transcribe Orders [facility] Pre Access Team [address] [place] [address] Joshua Cruz PA [address] [place] [phone] Social History Tobacco Use Types Packs/Day Years Used Date Smoking Tobacco: Never Smokeless Tobacco: Never Alcohol Use Standard Drinks/Week Comments Yes 0 (1 standard drink = 0.6 oz pur e alcohol) Weekends Sex and Gender Information Value Date Recorded Sex Assigned at Male 03/08/2024 9:07 AM CLAY MODELER Legal Sex Male 5:59 PM CLAY MODELER Gender Identity Not on file Sexual Orientation Not on file documented as of this encounter Plan of Treatment Scheduled Orders Name Type Priority Associated Diagnoses Order Schedule CARDIOLOGY STRESS TEST ONLY, EXERCISE Cardiac Services Routine Atypical chest pain 1 Occurrences starting 01/14/2025 until 01/14/2026 NM PHARM NUC STRESS TEST 1 DAY W TRACING NUC MED Routine Atypical chest pain Expected: 01/14/2025, Expires: 01/14/2026 documented as of this encounter Visit Diagnoses Diagnosis Atypical chest pain- Primary Other chest pain documented in this encounter Care Teams Psychologist Clinical Relationship Specialty Start Date End Date Don Araya MD [address] [place] [phone] PCP - General FAMILY PRACTICE 08/21/18 documented as of this encounter
--- OUTSIDE RECORDS SUMMARY | 2025-01-14 19:26 | XMS_ITS | Clinical Summary ---
Author Organization [facility] Marianela Tobar Address [address] [place] [address] Care Team Providers Care Bridge Game Director Name Role Phone Don Araya MD Primary [...] Active lisinopriL (PRINIVIL) 40 mg tablet Take 20 mg by mouth daily. 11/11/19 23 Active [...] see administration instructions. 10 Tablet 5 01/26/20 23 Active Active Problems No known active problems Encounters Date Type Department Care Team Description 01/14/2025 2:15 PM PLANT PRODUCTION WORKER Office Visit [facility] Oncology and Hematology 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, unspecified B-cell lymphoma type (CMS/HCC); Acute deep vein thrombosis (DVT) of axillary vein of right upper extremity (CMS/HCC) 01/08/2025 Orders Only [facility] Oncology and Hematology - Mert [address] [place] [phone] Arthur Gomez MD 12/11/2024 External Device Data STL ABSTRACTION Provider, Abstract 12/05/2024 External Device Data STL ABSTRACTION Provider, Abstract 12/05/2024 External Device Data STL ABSTRACTION Provider, Abstract from Last 3 Months Family History Medical [...] Comments Blood Pressure 165/78 01/14/2025 2:17 PM PLANT PRODUCTION WORKER Pulse 84 01/14/2025 2:17 PM PLANT PRODUCTION WORKER Temperature 36.8 C (98.3 F) 01/14/2025 2:13 PM PLANT PRODUCTION WORKER Respiratory Rate 16 01/14/2025 2:13 PM PLANT PRODUCTION WORKER Oxygen Saturation 96% 01/14/2025 2:17 PM PLANT PRODUCTION WORKER Inhaled Oxygen Concentration - - Weight 109.3 kg (241 lb) 01/14/2025 2:13 PM PLANT PRODUCTION WORKER Height 182.9 cm (6') 07/22/2022 3:30 PM CDT Body Mass Index 32.69 07/22/2022 3:30 PM CDT Plan of Treatment Upcoming Encounters Date Type Department Care Team (Late st Contact Info) Description 10/21/2025 10:15 AM CDT Office Visit [facility] Oncology and Hematology - [place] [address] [facility] [address] [place] [address] Arthur Gomez MD [address] [facility] [address] [place] [address] Health Maintenance Due Date Last Done Comments Pre-Diabetes and Diabetes Screening 1969 DTAP/TDAP/TD VACCINES (1 - Tdap) 1988 HEPATITIS B VACCINES (1 of 3 - 19+ 3-dose series) 04/1988 COLORECTAL SCREENING 2014 Colorectal Cancer Screening 2014 FIT-DNA Q 3 years 2014 FIT/FOBT Q 1 year 2014 Flex Sig/CT Colonography Q 5 years 2014 ZOSTER VACCINE (1 of 2) 2019 Preventative Visit- Commercial 02/08/2024 INFLUENZA VACCINE (#1) 2024 Procedures Procedure Name Priority Date/Time Associated Diagnosis Comments CT CHEST ABDOMEN PELVIS W CONT Routine 01/07/2025 9:00 AM PLANT PRODUCTION WORKER from Last 3 Months Results * CT CHEST ABDOMEN PELVIS W CONT (01/07/2025 9:00 AM PLANT PRODUCTION WORKER) Anatomical Region Laterality Modality Chest Computed Tomogra phy Arthur Gomez MD CT ORDERABLES Final Result from Last 3 Months Insurance [employer] [id number] Care Teams Bridge Game Director Relationship Specialty Start Date End Date Don Araya MD [address] [place] [phone] PCP - General Family Practice 09/09/22
--- OUTSIDE RECORDS SUMMARY | 2025-01-14 19:26 | XMS_ITS | Clinical Summary ---
Author Organization [facility] Address [address] [place] [address] Care Team Providers Care Mine Shifter Name Role Phone Unavailable Primary Care Provider Unavailabl e Source Comments [facility],non-owned Affiliates and Associated Physician Practices is amultiple site organization consisting of ambulatory clinics and hospital sitesin [place], [place], [place] and [place]. This disclosure is being madepursuant to the Care Everywhere program and may not contain all information available regarding this patient. Last updated 17.[facility] [employer]er Mode Social History Tobacco Use Types Packs/Day Years [...] 2019 ZOSTER VACCINE (1 of 2) 2019 DEPRESSION SCREENING 02/08/2024 COVID-19 VACCINE (1 - 2024-2 6 season) 2024 INFLUENZA VACCINE (#1) 2024 HIB VACCINE Aged Out No longer [...] DILLARD Subscriber ID:Not on file (Home) Address: [address] [place] [id number] Payer ID:Not on file Group ID:Not on file Type:Self Pay Address: [facility]
--- OUTSIDE RECORDS SUMMARY | 2025-01-14 19:26 | XMS_ITS | Encounter Summary ---
Author Organization [facility] Address [address] [facility] [place] [address] Care Team Providers Care Textile Slitting Machine Operator Name Role Phone Unavailable Primary Care Provider Unavailabl e Encounter Details Date Type Department Care Team (Late st Contact Info) Description 07/15/2022 Lab Requisition [facility] - Pathology Lab [address] [place] [phone] Alton Sandoval MD [address] [place] [phone] Illness, unspecified Social History Tobacco Use [...]
--- OUTSIDE RECORDS SUMMARY | 2025-01-14 19:26 | XMS_ITS | Clinical Summary ---
Author Organization [facility] Address [address] [place] [address] Care Team Providers Care Director Of Clinical Trials Name Role Phone Don Araya MD Primary Care Provider Allergies No known active allergies Medications amLODIPine (NORVASC) 10 MG tablet Take 1 tablet (10 mg total) by mouth daily. 02/18/2024 Active ELIQUIS 5 MG tablet Take 1 tablet (5 mg total) by mouth 2 (two) times daily. 02/17/2024 Active atorvastatin (LIPITOR) 20 MG tablet Take 1 tablet (20 mg total) by mouth daily. 02/17/2024 Active glipiZIDE XL 10 MG 24 hr tablet Take 1 tablet (10 mg total) by mouth 2 (two) times daily. 02/17/2024 Active HYDROcodone-marry taminophen (NORCO) 5-325 MG tablet TAKE 1 TABLET TWICE A DAY NEEDED FOR PAIN 02/28/2024 Active LANTUS SOLOSTAR 100 UNIT/ML injection (PEN) INJECT 65 UNITS UNDER THE SKIN AT BEDTIME, 15 UNITS IN MORNING. MAX DOSE IS 100 UNITS 02/22/2024 Active lisinopril (PRINIVIL) 40 MG tablet Take 1 tablet (40 mg total) by mouth daily. Active lovastatin (MEVACOR) 40 MG tablet Take 2 tablets (80 mg total) by mouth daily. Active meloxicam (MOBIC) 15 MG tablet Take 1 tablet (15 mg total) by mouth daily. 02/15/2024 Active metFORMIN (GLUCOPHAGE) 1000 MG tablet Take 1 tablet (1,000 mg total) by mouth 2 (two) times daily. Active RYBELSUS 14 MG tablet Take 1 tablet (14 mg total) by mouth daily. 12/19/2023 Active sildenafil (VIAGRA) 100 MG tablet 1 TABLET BY MOUTH NEEDED 08/22/2023 Active Active Problems Problem Noted Date Diagnosed Date S/P total knee replacement, right 09/21/2024 Knee pain, right 09/16/2024 Osteochondral defect of condyle of femur 025 Acute medial meniscus tear of right knee, initia l encounter 04/02/2024 Exostosis of right femur 03/08/2024 Acute lateral meniscus tear of right knee, initial encounter 03/08/2024 Effusion of knee joint right 03/08/2024 Encounters Date Type Department Care Team Description 01/14/2025 Transcribe Orders [facility] Pre Access Team [address] [place] [address] Joshua Barbosa PA 12/04/2024 8:36 AM CDT - 12/04/2024 11:59 PM CDT Hospital Encounter [facility] [address] [facility] [address] Joshua Barbosa PA Discharge Disposition: Home or Self Care (Routine Discharge) 12/04/2024 Travel 11/21/2024 Travel 11/15/2024 Travel 11/06/2024 9:05 AM CDT - 11/06/2024 11:59 PM CDT Hospital Encounter [facility] [address] [place] [phone] Ramiro Michael, PT Ace Power Jr., Marleni Gibson, WHARFMASTER Jnt Pain/Knee Discharge Disposition: Home or Self Care (Routine Discharge) 11/06/2024 Travel 11/02/2024 9:07 AM CDT - 11/02/2024 11:59 PM CDT Hospital Encounter [facility] [address] [place] [phone] Ramiro Michael, PT Ace Power Jr., DO Total Knee Arth Discharge Disposition: Home or Self Care (Routine Discharge) 11/02/2024 Travel 10/26/2024 8:54 AM CDT - 10/26/2024 11:59 PM CDT Hospital Encounter [facility] [address] [place] [phone] Ace Power Jr., Marleni Gibson, WHARFMASTER Total Knee Arth Discharge Disposition: Home or Self Care (Routine Discharge) 10/26/2024 Travel 10/24/2024 1:20 PM CDT - 10/24/2024 11:59 PM CDT Hospital Encounter [facility] [address] [facility] [address] Joshua Barbosa, PA Discharge Disposition: Home or Self Care (Routine Discharge) 10/24/2024 11:37 AM CDT - 10/24/2024 1:19 PM CDT Hospital Encounter [facility] [address] [place] [phone] Ramiro Michael, PT Ace Power Jr., DO Total Knee Arth Discharge Disposition: Home or Self Care (Routine Discharge) 10/24/2024 Travel 10/19/2024 8:38 AM CDT - 10/19/2024 11:59 PM CDT [facility] [address] [place] [phone] Ramiro Michael, Ace Velazquez Jr., DO Total Knee Arth Discharge Disposition: Home or Self Care (Routine Discharge) 10/19/2024 Travel 10/17/2024 9:16 AM CDT - 10/17/2024 11:59 PM CDT Hospital Encounter [facility] [address] [place] [phone] Ramiro Michael, PT Ace Power Jr., Marleni Gibson, WHARFMASTER Total Knee Arth Discharge Disposition: Home or Self Care (Routine Discharge) 10/17/2024 Travel 10/15/2024 10:45 AM CDT - 10/15/2024 11:59 PM CDT Hospital Encounter [facility] [address] [place] [phone] Ace Power Jr., Marleni Gibson, WHARFMASTER Total Knee Arth Discharge Disposition: Home or Self Care (Routine Discharge) 10/15/2024 Travel from Last 3 Months Family History Medical History Relation Comments Diabetes Father Relation Status Comments Father Mother Alive Social History Tobacco Use Types Packs/Day Years Used Date Smoking Tobacco: Never Smokeless Tobacco: Never Tobacco Cessation:Counseling Given: Not Answered Alcohol Use Standard Drinks/Week Comments Yes 0 (1 standard drink = 0.6 oz pur e alcohol) Weekends Sex and Gender Information Value Date Recorded Sex Assigned at Male 03/08/2024 9:07 AM WOOD BUCKER Legal Sex Male 5:59 PM WOOD BUCKER Gender Identity Not on file Sexual Orientation Not on file Last Filed Vital Signs Vital Sign Reading Time Taken Comments Blood Pressure 122/80 11/12/2016 11:10 AM CDT Pulse - - Temperature - - Respiratory Rate - - Oxygen Saturation - - Inhaled Oxygen Concentration - - Weight 117.9 kg (260 lb) 04/06/2024 9:42 AM WOOD BUCKER Height 182.9 cm (6') 04/06/2024 9:42 AM WOOD BUCKER Body Mass Index 35.26 04/06/2024 9:42 AM WOOD BUCKER Plan of Treatment Health Maintenance Due Date Last Done Comments Colorectal Cancer Screening Colonoscopy (10 Years) 1969 Kidney Health Evaluation 1969 Hemoglobin A1C 1969 Lipid Panel 1969 Annual Physical 1972 Diabetes: Retinopathy Eye Exam 1987 Hepatitis C 1987 DTaP, Tdap and Td Vaccines ( 1 - Tdap) 1988 Hepatitis B Vaccines (1 of 3 - 19+ 3-dose series) 1988 Pneumococcal Vaccine: 50+ Ye ars (1 of 2 - PCV) 1988 Zoster Vaccines (1 of 2) 2019 COVID-19 Vaccine (1 - 2024-2 6 season) 2024 Influenza Adult (#1) 2024 Hepatitis A Vaccines Aged Out No long er eligible based on patient's age to complete this topic Meningococcal B Vaccine Aged Out No l onger eligible based on patient's age to complete this topic Meningococcal Vaccine Aged Out No nilesh janie eligible based on patient's age to complete this topic RSV Immunizations Under 20 Months Aged Out No longer eligible based on patient's age to complete this topic Procedures Procedure Name Priority Date/Time Associated Diagnosis Comments MRA HEAD WO CON Routine 12/04/2024 9:47 AM CDT History of CVA (cerebrovascular accident) MRI BRAIN WO CON Routine 10/24/2024 2:17 PM CDT History of CVA (cerebrovascular accident) from Last 3 Months Results * MRA HEAD WO CON (12/04/2024 9:47 AM CDT) Anatomical Region Laterality Modality Head Magnetic Resonan ce 12/09/2024 10:0 8 PM WOOD BUCKER Impressions 12/09/2024 10:20 PM WOOD BUCKER IMPRESSION: 1. 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 2. Slightly beaded appearance of the proximal superior cerebellar arteries, right more than left, related to motion artifact versus moderate irregular atherosclerotic narrowing on the right and mild to moderate irregular atherosclerotic narrowing on the left. 3. Mild atherosclerosis in the M1 segments of the middle cerebral arteries without significant stenosis. 4. 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 The intracranial right vertebral artery is dominant. 5. Please see the MRI brain exam of 10/24/2024 for the other intracranial findings. Referred By: JOSHUA BARBOSA Interpreted By: Coral Viera MD, 12/09/2024 10:08 PM Narrative 12/09/2024 10:20 PM WOOD BUCKER [address] [place] [address] EXAMINATION: MRA Head without Intravenous Contrast, 3-D time of flight technique with 2-D and 3-D MIP reconstruction images. INDICATION: History of CVA COMPARISON: MRI brain without contrast 10/24/2024. 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 There is a dominant right posterior inferior cerebellar artery and a dominant left anterior inferior cerebellar artery, normal variants. There is irregular 50% or greater short segment narrowing in the P1 segment of the left posterior cerebral artery related to atherosclerosis, with critical stenosis or occlusion near the junction of left P1 and P2 segments, with the left P2 segment not well-visualized. Beaded appearance of bilateral proximal superior cerebellar arteries, right more than left, may be related to motion artifact and/or atherosclerosis with multiple short segment foci of narrowing in the proximal superior cerebellar arteries. Mild atherosclerosis in bilateral M1 segments of the middle cerebral arteries without significant stenosis. Intracranial carotid arteries, major segments of bilateral anterior and middle cerebral arteries, and the anterior communicating arteries are patent without significant stenosis or aneurysm. The posterior communicating arteries are not visualized on this exam. Please see the prior MRI brain without contrast exam of 10/24/2024 regarding the other intracranial findings. Procedure Note Coral Viera MD - 12/09/2024 [facility] [address] [place] [address] EXAMINATION: MRA Head without Intravenous Contrast, 3-D time of flighttechnique with 2-D and 3-D MIP reconstruction images. INDICATION: History of CVA COMPARISON: MRI brain without contrast 10/24/2024. FINDINGS: There is a diminutive intracranial left vertebral artery, likelydevelopmental hypoplasia with no significant stenosis of the intracranialright vertebral basilar arteries. There is a dominant right posteriorinferior cerebellar artery and a dominant left anterior inferiorcerebellar artery, normal variants. There is irregular 50% or greatershort segment narrowing in the P1 segment of the left posterior cerebralartery related to atherosclerosis, with critical stenosis or occlusionnear the junction of left P1 and P2 segments, with the left P2 segment notwell-visualized. Beaded appearance of bilateral proximal superiorcerebellar arteries, right more than left, may be related to motionartifact and/or atherosclerosis with multiple short segment foci ofnarrowing in the proximal superior cerebellar arteries. Mildatherosclerosis in bilateral M1 segments of the middle cerebral arterieswithout significant stenosis. Intracranial carotid arteries, majorsegments of bilateral anterior and middle cerebral arteries, and theanterior communicating arteries are patent without significant stenosis oraneurysm. The posterior communicating arteries are not visualized on thisexam. Please see the prior MRI brain without contrast exam of 10/24/2024regarding the other intracranial findings. IMPRESSION: 1. 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 2. Slightly beaded appearance of the proximal superior cerebellararteries, right more than left, related to motion artifact versus moderateirregular atherosclerotic narrowing on the right and mild to moderateirregular atherosclerotic narrowing on the left. 3. Mild atherosclerosis in the M1 segments of the middle cerebralarteries without significant stenosis. 4. Diminutive intracranial left vertebral artery, likely developmentalhypoplasia. The intracranial right vertebral artery is dominant. 5. Please see the MRI brain exam of 10/24/2024 for the other intracranialfindings. Referred By: JOSHUA BARBOSA Interpreted By: Coral Viera MD, 12/09/2024 10:08 PM us Joshua MELTON MRI Final Result * MRI BRAIN WO CON (10/24/2024 2:17 PM CDT) Anatomical Region Laterality Modality Head Magnetic Resonan ce 10/24/2024 2:26 PM CDT Impressions 10/24/2024 2:30 PM CDT IMPRESSION: 1. No acute intracranial abnormality. 2. Few scattered subcortical and periventricular white matter foci demonstrating increased signal on T2-weighted FLAIR images that are nonspecific but most commonly seen in setting of chronic small vessel ischemic change. 3. Focal areas of volume loss involving the right thalamus, superior aspect of the right caudate nucleus, and right paramedian aspect of the corpus callosum that may be sequela of prior infarcts. Ordered By: JOSHUA BARBOSA Interpreted By: Jose Carmona MD, 10/24/2024 2:26 PM Narrative 10/24/2024 2:30 PM CDT [place] [id number] [facility] [place] [address] Examination: MRI BRAIN WO CON, 10/24/2024 1:42 PM. Technique: Multiplanar multisequence magnetic resonance images of the brain were obtained without intravenous contrast. Clinical history: Personal history of transient ischemic attack (TIA), and cerebral infarction without residual deficits history of cva Comparison: CT head 08/17/2024 Findings: There is no restricted diffusion to suggest an acute infarction. No hemorrhagic focus of susceptibility. Few scattered subcortical and periventricular white matter foci demonstrating increased signal on T2-weighted FLAIR images that are nonspecific but most commonly seen in setting of chronic small vessel ischemic change. The sellar, callosal, pineal, and craniovertebral junction regions appear within normal limits. No extra-axial collection. The ventricles are normal in size. Focal areas of volume loss involving the right thalamus as well as the superior aspect of the right caudate nucleus, as well as the right paramedian aspect of the corpus callosum anterior aspect (best seen on series 3 images 14 through 12). Basal cisterns appear normal. The proximal intracranial arterial flow voids have a normal appearance. Orbital contents appear normal. Mucous retention cyst within the right maxillary sinus. Mastoid air cells are well aerated. Procedure Note Jose Carmona MD - 10/24/2024 [place] [id number] [facility] [place] [address] Examination: MRI BRAIN WO CON, 10/24/2024 1:42 PM. Technique: Multiplanar multisequence magnetic resonance images of thebrain were obtained without intravenous contrast. Clinical history: Personal history of transient ischemic attack (TIA), andcerebral infarction without residual deficits history of cva Comparison: CT head 08/17/2024 Findings: There is no restricted diffusion to suggest an acute infarction. Nohemorrhagic focus of susceptibility. Few scattered subcortical andperiventricular white matter foci demonstrating increased signal onT2-weighted FLAIR images that are nonspecific but most commonly seen insetting of chronic small vessel ischemic change. The sellar, callosal,pineal, and craniovertebral junction regions appear within normallimits. No extra-axial collection. The ventricles are normal in size. Focal areasof volume loss involving the right thalamus as well as the superior aspectof the right caudate nucleus, as well as the right paramedian aspect ofthe corpus callosum anterior aspect (best seen on series 3 images 14through 12). Basal cisterns appear normal. The proximal intracranialarterial flow voids have a normal appearance. Orbital contents appearnormal. Mucous retention cyst within the right maxillary sinus. Mastoidair cells are well aerated. IMPRESSION: 1. No acute intracranial abnormality. 2. Few scattered subcortical and periventricular white matter focidemonstrating increased signal on T2-weighted FLAIR images that arenonspecific but most commonly seen in setting of chronic small vesselischemic change. 3. Focal areas of volume loss involving the right thalamus, superioraspect of the right caudate nucleus, and right paramedian aspect of thecorpus callosum that may be sequela of prior infarcts. Ordered By: JOSHUA BARBOSA Interpreted By: Jose Carmona MD, 10/24/2024 2:26 PM Joshua Barbosa [place] MRI Final Result from Last 3 Months Insurance [facility] Care Teams Director Of Clinical Trials Relationship Specialty Start Date End Date Don Araya MD [address] [place] [phone] PCP - General FAMILY PRACTICE 08/21/18
--- OUTSIDE RECORDS SUMMARY | 2025-01-14 19:26 | XMS_ITS | Encounter Summary ---
Author Organization [facility] Address [address] [facility] [place] [address] Care Team Providers Care Sack Repairer Name Role Phone Unavailable Primary Care Provider Unavailabl e Encounter Details Date Type Department Care Team (Late st Contact Info) Description 07/15/2022 Lab Requisition [facility] - Pathology Lab [address] [place] [id number] Alton Sandoval MD [address] [phone] Illness, unspecified Social History Tobacco [...] CDT) Case Report Surgical Pathology Report Case: [id number] Authorizing Provider: Alton Sandoval MD Collected: 07/14/2022 10:40 AM Ordering Location: [facility] Care Pathology Lab Received: 07/15/2022 03:00 PM Pathologist: Lesly Wilson MD Specimen: Lymph Node Biopsy, right neck lymph node biopsy 07/16/2022 11:18 AM CDT [facility] Final Diagnosis Lymph node, right neck, needle core biopsy: - B-cell lymphoma - See description 07/16/2022 11:18 AM [facility] PATHOLOGY LAB at 1118 CDT Microscopic Description [...] Clinical correlation is advised. 07/16/2022 11:18 AM [facility] PATH[facility] Clinical History 52 year old man with an enlarged right submandibular lymph node that is reported to be necrotic on imaging. 07/16/2022 11:18 AM [facility] PATH[facility] Materials Received Received are 6 slides and 2 blocks (A1; A2) labeled [id number] along with a copy of the outside pathology report. [place] [address]. All original materials are returned to the referring institution, along with a copy of our final report. 07/16/2022 11:18 AM T [facility] PATHOLOGY LAB Pathologist Location at [facility] 07/16/2022 11:18 AM CDT [facility] PATHOLOGY LAB Disclaimer The performance characteristics of all immunohistochemical and indirect immunofluorescence stains (if any) cited in this report were determined by the Histopathology Laboratory of [facility]. Some of these tests [...] attending (teaching) pathologist. 07/16/2022 11:18 AM CDT [facility] PATHOLOGY LAB Embedded Images 07/16/2022 11:18 AM T [facility] PATHOLOGY LAB Pathology/Cytolo gy BIOPSY OF LYMPH NODE / Unknown 07/14/2022 10:40 AM CDT 07/15/2022 3:00 PM CDT us Alton Sandoval MD LAB - PATHOLOGY/CYTOLOGY ORDERAB LES Final Result [facility] PATHOLOGY LAB [address] [place], [place] [id number] [place] [address] documented in this encounter Visit Diagnoses Diagnosis Illness, unspecified documented in this encounter
== END 2025-01-14 16:15 | disposition home or self-care (01) ==
PROVIDERS: PCP Physician Assistant; Visit Provider Internal Medicine Hematology & Oncology
DX: I82.A11 Acute embolism and thrombosis of right axillary vein (principal)
CPT/HCPCS: 93971